=== PATIENT | female | born 1965 | race Caucasian/White ===

== ENCOUNTER 2020-08-14 22:37 | Emergency (ER) | payer OTHER ==
[~2020-08-14 22:37] MED LIST: BENTYL 20MG TAB20 MG PO; OMNICEF 300 MG300 MG PO; PHENERGAN 25 MG25 M1 PO; ZITHROMAX250 MG PO
[2020-08-14] MEDS ORDERED: OMNICEF 300 MG300 MG PO (23:58)
[2020-08-14] MEDS ORDERED: PYRIDIUM200 MG PO (23:58)
== END 2020-08-15 00:06 | disposition home or self-care (01) ==
LOC: ER1 22:37
DX: N39.0 Urinary tract infection, site not specified (principal); F17.210 Nicotine dependence, cigarettes, uncomplicated; Z90.710 Acquired absence of both cervix and uterus; Z90.49 Acquired absence of other specified parts of digestive tract
CPT/HCPCS: 81001; 99283

== ENCOUNTER 2021-03-16 01:03 | Emergency (ER) | payer SELFPAY ==
[~2021-03-16 01:03] MED LIST changes: +PYRIDIUM200 MG PO
[2021-03-16] MEDS ORDERED: PREDNISONE 20 M20 MG PO (03:49)
[2021-03-16] MEDS ORDERED: DOXYCYCLINE HY100 M2 PO (03:49)
== END 2021-03-16 04:10 | disposition home or self-care (01) ==
LOC: ER1 01:03
DX: J44.0 Chronic obstructive pulmonary disease with (acute) lower respiratory infection (principal); J18.9 Pneumonia, unspecified organism; F17.210 Nicotine dependence, cigarettes, uncomplicated; Z20.822 Contact with and (suspected) exposure to COVID-19
CPT/HCPCS: 0240U; 71045; 96372; 99283; J0696

== ENCOUNTER 2021-04-01 16:58 | Emergency (ER) | payer SELFPAY ==
[~2021-04-01 16:58] MED LIST changes: +DOXYCYCLINE HY100 M2 PO; +PREDNISONE 20 M20 MG PO
== END 2021-04-01 20:34 | disposition left against medical advice (07) ==
LOC: ER1 16:58
DX: U07.1 COVID-19 (principal); J44.9 Chronic obstructive pulmonary disease, unspecified; F17.210 Nicotine dependence, cigarettes, uncomplicated
CPT/HCPCS: 0240U; 99283